=== PATIENT | female | born 1990 | race Caucasian/White ===

== ENCOUNTER 2025-03-18 00:25 | Emergency (ER) | payer BC ==
[~2025-03-18] VITALS: Ht 170.2 cm; Wt 63.5 kg
[2025-03-18] MEDS ORDERED: KETOROLAC TROMETHAMINE INJ 30 MG/ML VIAL ONE (01:43)
[2025-03-18] MEDS: KETOROLAC TROMETHAMINE INJ 30 MG/ML VIAL IV ONE (01:47)
[2025-03-18 01:48] LABS: PLATELET COUNT (AUTO) 228 K/uL (150-450); RED BLOOD CELL COUNT(AUTO) 4.36 MIL/uL (4.0-5.2); RED CELL DISTRIBUTION WIDTH 12.7 % (11.5-15.0); WHITE BLOOD COUNT (AUTO) 7.9 K/uL (4.3-11.0)
[2025-03-18] MEDS ORDERED: IV NS 0.9% 250 ML IV ONE (01:53)
[2025-03-18] MEDS ORDERED: CT SWABBABLE VALVE TRANS SET 1 EA INFUS.SET MC ONE (01:53)
[2025-03-18] MEDS ORDERED: IOHEXOL-300 100 ML VIAL IV ONE (01:53)
[2025-03-18 01:55] LABS: CALCIUM, SERUM 9.0 mg/dL (8.5-10.1); CREATININE 0.7 mg/dL (0.6-1.3); SODIUM SERUM 141.0 mmol/L (136-145); UREA NITROGEN, BLOOD 21.0 mg/dL (7-18)
[2025-03-18 01:57] LABS: APPEARANCE,URINE SLIGHTLY CLOUDY (CLEAR); BLOOD, URINE NEGATIVE Ery/uL (NEGATIVE); LEUKOCYTE ESTERASE ,URINE NEGATIVE (NEGATIVE); NITRITE, URINE NEGATIVE (NEGATIVE); UGLUCOSE NEGATIVE (NEGATIVE)
[2025-03-18 02:01] LABS: ASPARTATE AMINOTRANSFERASE 13.0 U/L (15-37); TOTAL PROTEIN, SERUM 7.8 g/dL (6.4-8.2)
[2025-03-18 02:06] LABS: PREGNANCY TEST URINE QUAL NEGATIVE (NEGATIVE)
[2025-03-18 02:09] LABS: ADD URINE CULTURE YES; SQUAMOUS EPITHELIAL CELL,UR Few /HPF (None Seen); URINE AMORPHOUS URATE Many /HPF (None Seen)
[2025-03-18 03:20] VITALS: BP 109/60; TEMP 97.8; O2SAT 99
== END 2025-03-18 03:27 | disposition left against medical advice (07) ==
LOC: ER 00:28
DX: R10.31 Right lower quadrant pain (principal); R42 Dizziness and giddiness; R51.9 Headache, unspecified; E03.9 Hypothyroidism, unspecified; Z87.440 Personal history of urinary (tract) infections; Z88.0 Allergy status to penicillin; Z88.2 Allergy status to sulfonamides
CPT/HCPCS: 36415; 76856-TC; 80053-TC; 81001; 84703-TC; 85025-TC; 87040-TC; J1885; J7050; Q9967